=== PATIENT | female | born 1960 | race Caucasian/White ===

== ENCOUNTER → 2025-10-27 08:42 | Outpatient (CLI) | payer MEDICARE, SELFPAY ==
[2025-10-27 13:07] LABS: Hemoglobin A1C% w Est Avg Glu 5.2 % (4.0-6.0)
[2025-10-27 16:28] LABS: Vitamin D 25 Hydroxy (D3) 60.3 ng/mL (30.0-100.0)
[2025-10-27 16:44] LABS: Estradiol, Total 34.8 pg/mL
== END ==
PROVIDERS: PCP Nurse Practitioner Family; Referring Provider Nurse Practitioner Family; Visit Provider Nurse Practitioner Family
DX: E11.9 Type 2 diabetes mellitus without complications (principal); E55.9 Vitamin D deficiency, unspecified; E78.49 Other hyperlipidemia; R53.83 Other fatigue; Z78.0 Asymptomatic menopausal state
CPT/HCPCS: 36415; 82172; 82306; 82670; 83036; 84270; 84402; 84403